=== PATIENT | male | born 1975 | race Caucasian/White ===

== ENCOUNTER 2020-08-13 20:05 | Emergency (ER) | payer MEDICAID ==
[~2020-08-13] VITALS: Ht 172.7 cm; Wt 88.5 kg
[~2020-08-13 20:05] MED LIST: CIPRO; LOMOTIL; MOTRIN; TRAM50TA2 PO; TRAMADOL
[2020-08-13 21:24] LABS: Urine Bacteria NONE SEEN /hpf (None Seen); Urine Blood Negative /uL (Negative); Urine Mucus FEW (None Seen); Urine Specific Gravity 1.038 (1.001-1.035); Urine WBC 1 /hpf (0 - 3)
[2020-08-13 21:38] LABS: Alcohol, Urine < 3.0 mg/dL (0-10); Amphetamine Screen, Urine POSITIVE (NEGATIVE); Barbiturate Scree,Urine NEGATIVE (NEGATIVE); Benzodiazephine Screen, Urine NEGATIVE (NEGATIVE); Cannabinoid Screen, Urine NEGATIVE (NEGATIVE); Cocaine Screen, Urine NEGATIVE (NEGATIVE); Opiate Scree,Urine NEGATIVE (NEGATIVE); Phencyclidine Screen, Urine NEGATIVE (NEGATIVE)
[2020-08-13 22:57] LABS: Basophils # (auto) 0.1 10 ^3/uL (0-0.2); Basophils % (auto) 0.5 % (0.0-2.0); Eosinophils # (auto) 0.2 10 ^3/uL (0-0.8); Eosinophils % (auto) 1.5 % (0.0-7.0); Hemoglobin 16.8 g/dL (13.5-17.5); Lymphocytes # (auto) 2.1 10 ^3/uL (0.4-5.4); Lymphocytes % (auto) 15.5 % (10.0-50.0); Mean Corpuscular Hemoglobin 31.7 pg (28.0-32.0); Mean Corpuscular Volume 90.5 fL (80.0-100.0); Monocytes % (auto) 7.8 % (0.0-12.0); Neutrophils % (auto) 74.7 % (37.0-80.0); Nucleated Red Blood Cells % 0.1 %; Platelet Count (auto) 283 10^3/uL (140-450); Red Cell Distribution Width 12.7 % (11.8-14.3); White Blood Cell 13.4 10^3/uL (4.4-10.8)
[2020-08-13 23:10] LABS: Magnesium 2.3 mg/dL (1.6-2.6); Potassium 3.8 mmol/L (3.5-5.1)
[2020-08-13 23:14] LABS: Total Protein 7.8 g/dL (6.4-8.2)
[2020-08-14 09:55] VITALS: BP 113/71
[2020-08-14] MEDS ORDERED: LORazepam 0.5 MG TAB PO PRN (11:15)
== END 2020-08-14 15:33 | disposition left against medical advice (07) ==
LOC: ER 20:17
DX: R44.0 Auditory hallucinations (principal); R45.851 Suicidal ideations; F17.210 Nicotine dependence, cigarettes, uncomplicated; F32.9 Major depressive disorder, single episode, unspecified; F41.9 Anxiety disorder, unspecified; Z59.0 Homelessness
CPT/HCPCS: 36415; 80053; 80307; 81001; 83735; 85025

== ENCOUNTER → 2021-05-25 | Emergency (ER) | payer MEDICAID ==
[~2021-05-25] VITALS: Ht 172.7 cm; Wt 91.6 kg
[2021-05-25 17:59] VITALS: BP 137/94
[2021-05-25 18:40] LABS: Urine Bacteria NONE SEEN /hpf (None Seen); Urine Blood Negative /uL (Negative); Urine Mucus FEW (None Seen); Urine Specific Gravity 1.034 (1.001-1.035); Urine WBC 1 /hpf (0 - 3)
[2021-05-25 18:41] LABS: Urine Hyaline Cast 1+ /lpf (0 - 2)
[2021-05-25 18:43] LABS: Basophils # (auto) 0.1 10 ^3/uL (0-0.2); Basophils % (auto) 0.7 % (0.0-2.0); Eosinophils # (auto) 0.2 10 ^3/uL (0-0.8); Eosinophils % (auto) 2.6 % (0.0-7.0); Hematocrit 44.9 % (41.0-53.0); Hemoglobin 15.7 g/dL (13.5-17.5); Lymphocytes # (auto) 1.8 10 ^3/uL (0.4-5.4); Lymphocytes % (auto) 24.8 % (10.0-50.0); Mean Corpuscular Hemoglobin 31.5 pg (28.0-32.0); Mean Corpuscular Hgb Conc. 34.8 g/dL (32.0-36.0); Mean Corpuscular Volume 90.4 fL (80.0-100.0); Monocytes # (auto) 0.7 10 ^3/uL (0-1.3); Monocytes % (auto) 9.1 % (0.0-12.0); Neutrophils # (auto) 4.5 10 ^3/uL (1.6-8.6); Neutrophils % (auto) 62.8 % (37.0-80.0); Nucleated Red Blood Cells % 0.1 %; Red Blood Cells 4.97 10^6/uL (4.5-5.90); Red Cell Distribution Width 12.9 % (11.8-14.3); White Blood Cell 7.2 10^3/uL (4.4-10.8)
[2021-05-25 19:00] LABS: Albumin 3.6 g/dL (3.4-5.0); Anion Gap 7 (5-15); Blood Urea Nitrogen 18 mg/dL (7-18); Calcium 8.7 mg/dL (8.5-10.1); Carbon Dioxide 26 mmol/L (21-32); Chloride 106 mmol/L (98-107); Potassium 3.6 mmol/L (3.5-5.1); Sodium 139 mmol/L (136-145)
[2021-05-25 19:02] LABS: Salicylate 2.6 mg/dL (2.8-20.0)
[2021-05-25 19:03] LABS: Acetaminophen < 2.0 ug/mL (10-30); Alanine Aminotransferase 55 U/L (16-61); Aspartate Aminotransferase 54 U/L (15-37); BUN/Creatinine Ratio 17.6; GFR African American 101 mL/min; GFR Non-African American 84 mL/min; Glucose 155 mg/dL (74-106)
[2021-05-25 19:04] LABS: Amphetamine Screen, Urine POSITIVE (NEGATIVE); Barbiturate Scree,Urine NEGATIVE (NEGATIVE); Benzodiazephine Screen, Urine NEGATIVE (NEGATIVE); Cannabinoid Screen, Urine NEGATIVE (NEGATIVE); Cocaine Screen, Urine NEGATIVE (NEGATIVE)
[2021-05-25 19:22] LABS: Opiate Scree,Urine NEGATIVE (NEGATIVE); Phencyclidine Screen, Urine NEGATIVE (NEGATIVE)
[2021-05-25 19:28] LABS: Alkaline Phosphatase 86 U/L (45-117); Bilirubin, Total 0.6 mg/dL (0.2-1.0); Total Protein 6.9 g/dL (6.4-8.2)
[2021-05-25 19:47] LABS: Alcohol, Urine < 3.0 mg/dL (0-10)
[2021-05-25 19:47] LABS: Blood Alcohol < 3.0 mg/dL (0-5)
== END | disposition home or self-care (01) ==
LOC: ER 18:00
DX: F15.10 Other stimulant abuse, uncomplicated (principal); F17.210 Nicotine dependence, cigarettes, uncomplicated
CPT/HCPCS: 36415; 80053; 80307; 80320; 80329; 81001; 85025

== ENCOUNTER 2021-10-02 22:27 | Emergency (ER) | payer MEDICAID ==
[~2021-10-02] VITALS: Ht 172.7 cm; Wt 90.0 kg
[2021-10-02 23:17] VITALS: BP 105/67
[2021-10-03 00:09] LABS: Urine Bacteria NONE SEEN /hpf (None Seen); Urine Blood Negative /uL (Negative); Urine Hyaline Cast MOD /lpf (0 - 2); Urine Mucus FEW (None Seen); Urine Specific Gravity 1.035 (1.001-1.035); Urine WBC 3 /hpf (0 - 3)
[2021-10-03] MEDS ORDERED: HYDR50TA69 PO (00:45)
== END 2021-10-03 02:39 | disposition left against medical advice (07) ==
LOC: ER 22:27
DX: F41.8 Other specified anxiety disorders (principal); F15.10 Other stimulant abuse, uncomplicated; F17.210 Nicotine dependence, cigarettes, uncomplicated; Z79.899 Other long term (current) drug therapy; Z88.8 Allergy status to other drugs, medicaments and biological substances
CPT/HCPCS: 81001